=== PATIENT | male | born 1970 ===

== ENCOUNTER 2018-04-13 11:06 | Emergency (ER) | payer SELFPAY ==
[~2018-04-13] VITALS: Ht 172.7 cm; Wt 84.0 kg
[2018-04-13] MEDS ORDERED: MORPHINE SULFATE 10 MG/ML CPJ IM ONE (11:30)
[2018-04-13 14:55] VITALS: BP 138/98
== END 2018-04-13 14:56 | disposition home or self-care (01) ==
LOC: ER 11:06
DX: M25.552 Pain in left hip (principal); R07.81 Pleurodynia; Z02.89 Encounter for other administrative examinations; E11.9 Type 2 diabetes mellitus without complications; I10 Essential (primary) hypertension; Z88.6 Allergy status to analgesic agent
CPT/HCPCS: 71045; 71250; 72170; 73560; 96372; 99284; J2270